=== PATIENT | male | born 1975 | race Caucasian/White ===

== ENCOUNTER → 2019-06-10 | Outpatient (CLI) | payer OTHER ==
--- NOTE | 2019-06-10 16:02 | XR ---
EXAMINATION TYPE: XR foot complete LT DATE OF EXAM: 06/10/2019 CLINICAL HISTORY: Pain of the left first digit after injury TECHNIQUE: Frontal, lateral, and oblique images of the left foot are obtained. COMPARISON: None FINDINGS: There is no acute fracture/dislocation evident in the left foot. The joint spaces in the left foot appear within normal limits. The overlying soft tissue appears unremarkable. IMPRESSION: There is no acute fracture or dislocation in the left foot.
== END ==
LOC: RADXRMAIN 15:39
PROVIDERS: ATTEND Emergency Medicine
DX: S93.502A Unspecified sprain of left great toe, initial encounter (principal)

== ENCOUNTER → 2019-11-12 | Outpatient (CLI) | payer OTHER | END | disposition home or self-care (01) | LOC: LABMAIN 20:45 | PROVIDERS: ATTEND Family Medicine | DX: Z03.818 Encounter for observation for suspected exposure to other biological agents ruled out (principal) ==

== ENCOUNTER 2020-06-19 04:14 | Emergency (ER) | payer OTHER ==
[2020-06-19 04:25] VITALS: BP 134/84; PULSE 86; RESP 18; TEMP 97.7
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
== END 2020-06-19 05:07 | disposition home or self-care (01) ==
LOC: EC 04:14
DX: T59.811A Toxic effect of smoke, accidental (unintentional), initial encounter (principal); R05 Cough; R49.0 Dysphonia
CPT/HCPCS: 99283